=== PATIENT | male | born 1955 | race Caucasian/White ===

== ENCOUNTER 2018-12-15 10:52 | Emergency (ER) | payer MEDICAID ==
[~2018-12-15] VITALS: Ht 167.6 cm; Wt 68.0 kg
[2018-12-15] MEDS ORDERED: DOCU100C36 PO (11:18)
[2018-12-15] MEDS ORDERED: ATOR40TA PO (11:18)
[2018-12-15] MEDS ORDERED: ASPI81TA31 PO (11:18)
[2018-12-15] MEDS ORDERED: MULT1TAB73 PO (11:18)
[2018-12-15] MEDS ORDERED: METF-440 PO (11:18)
[2018-12-15] MEDS ORDERED: FOLI1TAB16 PO (11:18)
[2018-12-15] MEDS ORDERED: ERGOCALCIFEROL PO (11:18)
[2018-12-15] MEDS ORDERED: TAMS-3 PO (11:18)
[2018-12-15] MEDS ORDERED: LISI-603 PO (11:18)
--- NOTE | 2018-12-15 12:15 | NUR ---
called [facility] for transfer, ETA [id number], and trip # [id number].
[2018-12-15 12:19] VITALS: BP 134/82
== END 2018-12-15 12:51 | disposition home or self-care (01) ==
LOC: ER 10:52
DX: S00.83XA Contusion of other part of head, initial encounter (principal); M25.562 Pain in left knee; E11.9 Type 2 diabetes mellitus without complications; E78.5 Hyperlipidemia, unspecified; Z79.82 Long term (current) use of aspirin; Z79.899 Other long term (current) drug therapy; W01.0XXA Fall on same level from slipping, tripping and stumbling without subsequent striking against object, initial encounter; Y93.89 Activity, other specified; Y92.89 Other specified places as the place of occurrence of the external cause; Y99.8 Other external cause status
CPT/HCPCS: 70450; A4663